=== PATIENT | female | born 1945 | race Caucasian/White ===

== ENCOUNTER → 2021-05-21 | Outpatient (CLI) | payer MEDICARE, BC ==
[~2021-05-21] MED LIST: ALPR0.5T6 PO; AMLO-187 PO; ATOR20TA58 PO; CALC-135 PO; ERYT250T14 PO; LAMO150T4 PO; LOSA1TAB25 PO; MULT-18 PO; NABU500T11 PO; OMEG-33 PO; PARO10TA3 PO; SENN-37 PO; SULF500T7 PO
--- NOTE | 2021-05-21 13:19 | RAD ---
3 views of the abdomen 05/21/2021 INDICATION: Constipation COMPARISON STUDY: None Discussion: The bowel gas pattern is nonobstructive. No gross pneumoperitoneum is identified. No acut e osseous changes are seen. Postoperative changes lumbar spine noted. No acute soft tissue changes ar e identified. IMPRESSION: No radiographic evidence of acute intra-abdominal abnormality Electronically signed by: Britton Carver MD (05/21/2021 1:16 PM) [id number]
== END ==
LOC: RAD 10:46
PROVIDERS: ATTEND Family Medicine
DX: K59.00 Constipation, unspecified (principal); Z98.890 Other specified postprocedural states
CPT/HCPCS: 74019

== ENCOUNTER → 2021-08-11 | Day surgery (SDC) | payer MEDICARE, BC ==
[~2021-08-11] MED LIST changes: +IPRATRPIUM/ALBUTEROL 0.5/2.5MG 3 ML NEBU. NEB PRN; +IV RINGERS SOLUTION,LACTATED 1,000 ML IV SCH; +LIDOCAINE 2% PF 5 ML VIAL. ONE; +LINA72CA PO; +MIDAZOLAM HCL PF 2 MG/2 ML VIAL. IV ONE; +PROPOFOL 10,000 MCG/ML (20ML) VIAL IV ONE
[2021-08-11 13:00] VITALS: BP 164/81
== END | disposition home or self-care (01) ==
LOC: SURG 10:46
PROVIDERS: ATTEND Internal Medicine Gastroenterology
DX: K59.04 Chronic idiopathic constipation (principal); K63.5 Polyp of colon; R15.9 Full incontinence of feces; Q43.8 Other specified congenital malformations of intestine; I10 Essential (primary) hypertension; M19.90 Unspecified osteoarthritis, unspecified site; Z79.899 Other long term (current) drug therapy
CPT/HCPCS: 45385; J2001; J2704; J7120